=== PATIENT | male | born 1950 | race Caucasian/White ===

== ENCOUNTER → 2022-04-05 | Day surgery (SDC) | payer MEDICARE ==
[~2022-04-05] VITALS: Ht 177.8 cm; Wt 94.8 kg
[~2022-04-05] MED LIST: ADULT LOW DOSE81 MG PO; ALL DAY ALLERGY10 MG PO; LIPITOR40 MG PO; LOPRESSOR25 MG PO; METAMUCIL1 DOSE PO; VITAMIN D325 MC4 PO
== END | disposition home or self-care (01) ==
LOC: FAS 08:50
DX: Z12.11 Encounter for screening for malignant neoplasm of colon (principal); K63.5 Polyp of colon; K57.30 Diverticulosis of large intestine without perforation or abscess without bleeding; Z86.010 Personal history of colon polyps; Z80.0 Family history of malignant neoplasm of digestive organs; I10 Essential (primary) hypertension; E78.00 Pure hypercholesterolemia, unspecified; K21.9 Gastro-esophageal reflux disease without esophagitis; I25.10 Atherosclerotic heart disease of native coronary artery without angina pectoris; I25.2 Old myocardial infarction; Z95.5 Presence of coronary angioplasty implant and graft; Z79.82 Long term (current) use of aspirin; Z79.899 Other long term (current) drug therapy; Z87.891 Personal history of nicotine dependence; Z72.89 Other problems related to lifestyle
CPT/HCPCS: J2704; J7120